=== PATIENT | male | born 1965 | race Caucasian/White ===

== ENCOUNTER 2018-06-22 10:52 | Emergency (ER) | payer OTHER ==
[2018-06-22] MEDS ORDERED: KETOROLAC 30 MG/ML VIAL (J1885) IV (11:15)
[2018-06-22] MEDS ORDERED: diphenhydrAMINE INJ 50MG/ML VIAL (J1200) IV (11:15)
[2018-06-22] MEDS ORDERED: METOCLOPRAMIDE INJ 10MG/2ML VIAL (J2765) IV (11:15)
[2018-06-22] MEDS: FLUORESCEIN OPHTH 1 MG STRIP OU (11:15)
[2018-06-22] MEDS: ERYTHROMYCIN OPHTH OINT OD (11:30)
== END 2018-06-22 11:46 | disposition home or self-care (01) ==
LOC: M ED 10:52
DX: S05.01XA Injury of conjunctiva and corneal abrasion without foreign body, right eye, initial encounter (principal); W45.8XXA Other foreign body or object entering through skin, initial encounter; Y92.821 Forest as the place of occurrence of the external cause; Y93.89 Activity, other specified
CPT/HCPCS: 99283

== ENCOUNTER → 2021-07-08 | Outpatient (REF) | payer OTHER ==
[~2021-07-08] MED LIST: ERYTOIN8 OD
== END ==
LOC: M LAB REF 15:05
PROVIDERS: ATTEND Surgery
DX: D17.9 Benign lipomatous neoplasm, unspecified (principal)

== ENCOUNTER → 2024-11-25 | Outpatient (REF) | payer OTHER | LOC: M SFHCDERM 13:08 | PROVIDERS: ATTEND Physician Assistant | DX: L82.1 Other seborrheic keratosis (principal) ==